=== PATIENT | female | born 1950 | race Caucasian/White ===

== ENCOUNTER → 2017-06-22 | Outpatient (CLI) | payer MEDICARE ==
--- NOTE | 2017-06-22 11:36 | RAD ---
Bone densitometry scan, 06/22/2017: History: Ovarian failure, screening The lumbar spine and right hip were examined utilizing a DEXA technique. The bone mineral density lumbar spine as measured from the L1-L4 levels is 1.20 g/sq cm. This yields a T score of 0.1 which is in the normal range. The total T score at the right hip is -0.9 which is also in the normal range. IMPRESSION: Normal bone mineral density measurements.
--- NOTE | 2017-06-22 11:44 | RAD ---
DATE: 06/22/2017 EXAM: MAMMO FATEMEH SCREENING BILATERAL HISTORY: Screening Mammogram COMPARISON: Screening mammogram 07/08/2009 This study was interpreted with the benefit of Computerized Aided Detection (CAD). The breast parenchyma shows scattered fibroglandular densities. Breast parenchyma level B. FINDINGS: Bilateral digital 2-D and 3-D tomosynthesis CC and MLO views. No suspicious mass, calcification or architectural distortion. No significant change from prior examination IMPRESSION: No mammographic evidence of malignancy. Recommend routine screening mammogram in 12 months. BI-RADS CATEGORY: 1 NEGATIVE RECOMMENDED FOLLOW-UP: 12M 12 MONTH FOLLOW-UP PQRS compliance statement: Patient information was entered into a reminder system with a target due date for the next mammogram. Mammography is a sensitive method for finding small breast cancers, but it does not detect them all and is not a substitute for careful clinical examination. A negative mammogram does not negate a clinically suspicious finding and should not result in delay in biopsying a clinically suspicious abnormality. "Our facility is accredited by the [employer] Mammography Program."
== END | disposition home or self-care (01) ==
LOC: DXRAD 10:24
PROVIDERS: ATTEND Family Medicine
DX: Z12.31 Encounter for screening mammogram for malignant neoplasm of breast (principal); E28.39 Other primary ovarian failure
CPT/HCPCS: 77063; 77067; 77080

== ENCOUNTER 2019-11-08 09:23 | Emergency (ER) | payer MEDICARE ==
[~2019-11-08] VITALS: Ht 160 cm; Wt 63.6 kg
[2019-11-08 09:50] VITALS: BP 138/82
[2019-11-08] MEDS ORDERED: DIPH,PERTUSS(ACELL),TET VAC/PF 0.5 ML SYRINGE. VAX IM ONE (10:15)
--- NOTE | 2019-11-08 10:29 | RAD ---
3 view study of the sacrum and coccyx Clinical indications: Trauma and pain. FINDINGS: No acute fracture or displacement or lytic process is seen. No diastases of either SI joint is seen. IMPRESSION: No acute osseous abnormality. Electronically signed by: David Stratton MD (11/08/2019 10:26 AM) [id number]
--- NOTE | 2019-11-08 10:30 | RAD ---
CT HEAD WO CONTRAST History: Reason: trauma. / Spl. Instructions: / History: Pain. Comparison: None. Technique: Noncontrast CT imaging was performed of the head. Exposure: One or more of the following individualized dose reduction techniques were utilized for this examination: 1. Automated exposure control 2. Adjustment of the mA and/or kV according to patient size 3. Use of iterative reconstruction technique. Findings: No intracranial hemorrhage. No mass effect. No hydrocephalus. Posterior scalp soft tissue injury. Mild brain parenchymal volume loss. Mild foci of decreased attenuation within the hemispheric white matter, most often due to chronic microvascular ischemia. Imaged orbits are unremarkable. Imaged paranasal sinuses and mastoid air cells are clear. No acute calvarial fracture. TMJ arthropathy. Impression: 1. No acute intracranial abnormality. 2. Left posterior scalp soft tissue injury. Electronically signed by: Guillermo Marcial DO (11/08/2019 10:26 AM) [id number]
--- NOTE | 2019-11-08 10:38 | PHYS DOC ---
Past History Past Medical History: No Pertinent History Past Surgical History: No Surgical History Alcohol Use: None General Adult EDM: Chief Complaint: MECHANICAL FALL HPI: HPI: Patient is a 68-year-old female presenting with mechanical fall laceration to the occiput no loss of consciousness no vomiting. Mild to moderate pain to the occiput as well as the coccyx Review of Systems: Review of Systems: Constitutional: Denies fever or chills Musculoskeletal: Denies back pain or joint pain Integument: Denies rash Neurologic: Denies headache, focal weakness or sensory changes Endocrine: Denies polyuria or polydipsia Lymphatic: Denies swollen glands Psychiatric: Denies depression or anxiety Heart Score: Risk Factors: Risk Factors: DM, Current or recent (<one month) smoker, HTN, HLP, family history of CAD, obesity. Risk Scores: Score 0 - 3: 2.5% MACE over next 6 weeks - Discharge Home Score 4 - 6: 20.3% MACE over next 6 weeks - Admit for Clinical Observation Score 7 - 10: 72.7% MACE over next 6 weeks - Early Invasive Strategies Current Medications: Current Meds: Current Medications Medications (Trade) Dose Ordered Sig/Rajni Start Time Stop Time Status Last Admin Dose Admin Diphtheria/ Pertussis/Tetanus Vacc (ADACEL TDap SYRINGE) 0.5 ml ONCE ONCE 11/08/19 10:15 11/08/19 10:32 DC Allergies: Allergies: Allergies Coded Allergies Type Severity Reaction Last Updated Verified amoxicillin Allergy Unknown 11/08/19 Yes sulfamethoxazole Allergy Unknown 11/08/19 Yes tetracycline Allergy Unknown 11/08/19 Yes triamcinolone Allergy Unknown 11/08/19 Yes trimethoprim Allergy Unknown 11/08/19 Yes Physical Exam: PE: Constitutional: Well developed, well nourished, no acute distress, non-toxic appearance. [] HENT: Normocephalic, 3 cm laceration to the occiput noted no foreign body seen, bilateral external ears normal, oropharynx moist, no oral exudates, nose normal. [] Eyes: PERRLA, EOMI, conjunctiva normal, no discharge. [] Neck: Normal range of motion, no tenderness, supple, no stridor. [] Pulmonary: Normal respiratory effort no increased work of breathing no obvious chest wall trauma Abdomen: Bowel sounds normal, soft, no tenderness, no masses, no pulsatile masses. [] Skin: Warm, dry, no erythema, no rash. [] Back: Tenderness to palpation noted to the coccyx but not the lumbar spine Extremities: No tenderness, no cyanosis, no clubbing, ROM intact, no edema. [] Neurologic: Alert and oriented X 3, normal motor function, normal sensory function, no focal deficits noted. [] Psychologic: Affect normal, judgement normal, mood normal. [] Current Patient Data: Vital Signs: Vital Signs Date Time Temp Pulse Resp B/P (MAP) Pulse Ox O2 Delivery O2 Flow Rate FiO2 11/08/19 09:50 98.1 105 16 138/82 (100) 96 Room Air EKG: EKG: [] Radiology/Procedures: Radiology/Procedures: [] FINDINGS: No acute fracture or displacement or lytic process is seen. No diastases of either SI joint is seen. IMPRESSION: No acute osseous abnormality. Electronically signed by: Lida Stratton MD (11/08/2019 10:26 AM) [id number] DICTATED AND SIGNED BY: LIDA STRATTON MD DATE: 11/08/19 1026 CC: CARLOS SANTOS MD; PCP,NO ~ Impressions: Imaged orbits are unremarkable. Imaged paranasal sinuses and mastoid air cells are clear. No acute calvarial fracture. TMJ arthropathy. Impression: 1. No acute intracranial abnormality. 2. Left posterior scalp soft tissue injury. Electronically signed by: Guillermo Marcial DO (11/08/2019 10:26 AM) [id number] Course & Med Decision Making: Course & Med Decision Making Pertinent Labs and Imaging studies reviewed. (See chart for details) [] Procedure note: Laceration repair 3 cm laceration to the occiput irrigated profusely no foreign body seen lidocaine was used for anesthesia 4 gladys were placed with good skin approximation and hemostasis wound care instructions were provided. In summary this is a 68-year-old female takes no medication who had a mechanical fall head CT and sacrum CT were negative acute patient was reassured and discharged in stable condition there was no midline neck tenderness at all tetanus is ordered in the emergency room Dragon Disclaimer: [place] Disclaimer: This electronic medical record was generated, in whole or in part, using a voice recognition dictation system. Departure Departure: Impression: Primary Impression: Head injury Disposition: 01 HOME/RESIDENCE PRIOR TO ADM Condition: STABLE Referrals: PCP,NO (PCP) Justification of Admission: Justification of Admission: Justification of Admission Dx: N/A CARLOS SANTOS MD Nov 08, 2019 10:37
== END 2019-11-08 10:45 | disposition home or self-care (01) ==
LOC: ER 09:23
DX: S01.01XA Laceration without foreign body of scalp, initial encounter (principal); Z88.1 Allergy status to other antibiotic agents; Z88.2 Allergy status to sulfonamides; Z88.8 Allergy status to other drugs, medicaments and biological substances; W18.39XA Other fall on same level, initial encounter; Y93.89 Activity, other specified; Y92.89 Other specified places as the place of occurrence of the external cause; Y99.8 Other external cause status
CPT/HCPCS: 12002; 70450; 72220; 90471; 90715; 99284

== ENCOUNTER 2019-11-18 08:59 | Emergency (ER) | payer MEDICARE ==
[~2019-11-18] VITALS: Ht 160 cm; Wt 63.6 kg
[2019-11-18 09:14] VITALS: BP 144/72
--- NOTE | 2019-11-18 09:15 | PHYS DOC ---
Past History Past Medical History: No Pertinent History Past Surgical History: No Surgical History Alcohol Use: None General Adult EDM: Chief Complaint: SUTURE/STAPLE REMOVAL HPI: HPI: 68-year-old female presents for staple removal from her scalp. Is been 10 days since her placed. She has had no complications. She has no other complaints. Review of Systems: Review of Systems: Constitutional: Denies fever or chills Eyes: Denies change in visual acuity HENT: Denies nasal congestion or sore throat Respiratory: Denies cough or shortness of breath Cardiovascular: Denies chest pain or edema GI: Denies abdominal pain, nausea, vomiting, bloody stools or diarrhea : Denies dysuria Musculoskeletal: Denies back pain or joint pain Integument: Skin gladys Neurologic: Denies headache, focal weakness or sensory changes Endocrine: Denies polyuria or polydipsia Lymphatic: Denies swollen glands Psychiatric: Denies depression or anxiety Heart Score: Risk Factors: Risk Factors: DM, Current or recent (<one month) smoker, HTN, HLP, family history of CAD, obesity. Risk Scores: Score 0 - 3: 2.5% MACE over next 6 weeks - Discharge Home Score 4 - 6: 20.3% MACE over next 6 weeks - Admit for Clinical Observation Score 7 - 10: 72.7% MACE over next 6 weeks - Early Invasive Strategies Allergies: Allergies: Allergies Coded Allergies Type Severity Reaction Last Updated Verified amoxicillin Allergy Unknown 11/08/19 Yes sulfamethoxazole Allergy Unknown 11/08/19 Yes tetracycline Allergy Unknown 11/08/19 Yes triamcinolone Allergy Unknown 11/08/19 Yes trimethoprim Allergy Unknown 11/08/19 Yes Physical Exam: PE: Constitutional: Well developed, well nourished, no acute distress, non-toxic appearance. [] HENT: Normocephalic, atraumatic, bilateral external ears normal, oropharynx moist, no oral exudates, nose normal. [] Eyes: PERRLA, EOMI, conjunctiva normal, no discharge. [] Neck: Normal range of motion, no tenderness, supple, no stridor. [] Cardiovascular:Heart rate regular rhythm, no murmur [] Lungs & Thorax: Bilateral breath sounds clear to auscultation [] Abdomen: Bowel sounds normal, soft, no tenderness, no masses, no pulsatile masses. [] Skin: 4 sutures over well-healed incision of the posterior scalp. Warm, dry, no erythema, no rash. [] Back: No tenderness, no CVA tenderness. [] Extremities: No tenderness, no cyanosis, no clubbing, ROM intact, no edema. [] Neurologic: Alert and oriented X 3, normal motor function, normal sensory function, no focal deficits noted. [] Psychologic: Affect normal, judgement normal, mood normal. [] EKG: EKG: [] Radiology/Procedures: Radiology/Procedures: [] Course & Med Decision Making: Course & Med Decision Making Pertinent Labs and Imaging studies reviewed. (See chart for details) I removed 4 gladys without complication. The patient stable for discharge at this time. [] Dragon Disclaimer: Dragon Disclaimer: This electronic medical record was generated, in whole or in part, using a voice recognition dictation system. Departure Departure: Impression: Primary Impression: Encounter for staple removal Disposition: HOME/RESIDENCE PRIOR TO ADM Condition: STABLE Referrals: PCP,NO (PCP) Patient Instructions: Staple Removal, Care After Justification of Admission: Justification of Admission: Justification of Admission Dx: N/A SILKE MORGAN DO Nov 18, 2019 09:15
== END 2019-11-18 09:28 | disposition home or self-care (01) ==
LOC: ER 08:59
DX: S01.01XD Laceration without foreign body of scalp, subsequent encounter (principal); Z88.1 Allergy status to other antibiotic agents; Z88.2 Allergy status to sulfonamides; Z88.8 Allergy status to other drugs, medicaments and biological substances; X58.XXXD Exposure to other specified factors, subsequent encounter
CPT/HCPCS: 99281